=== PATIENT | female | born 1995 | race Hispanic/Latino ===

== ENCOUNTER 2018-11-19 08:51 | Emergency (ER) | payer MEDICAID, OTHER ==
[2018-11-19] MEDS ORDERED: GUAIFENESIN-DM 200/20 MG 10 ML ONE (09:28)
[2018-11-19] MEDS ORDERED: BENZONATATE 100 MG CAPSULE PO ONE (09:28)
[2018-11-19] MEDS ORDERED: ALBUTEROL SULFATE 0.083% 2.5 MG/3 ML INH IH ONE (09:34)
== END 2018-11-19 10:52 | disposition home or self-care (01) ==
LOC: EDH 08:51
DX: J20.9 Acute bronchitis, unspecified (principal); Z79.899 Other long term (current) drug therapy
CPT/HCPCS: 71046; 87804; 94640